=== PATIENT | female | born 1995 | race Caucasian/White ===

== ENCOUNTER 2020-12-07 08:50 | Emergency (ER) | payer OTHER ==
--- NOTE | 2020-12-07 10:05 | ERPHSYRPT ---
- History of Present Illness Time Seen by Provider: 12/07/20 08:56 Source: patient Exam Limitations: no limitations Patient Subjective Stated Complaint: Pt states "I have something and I cannot kick it. It started on Thursday the , I went to [facility] on [facility] and they tested me for douglass and said it was not that so they gave me a Z pack and said I was good. I am still coughing and I feel terrible. My family doc said because I am coughing I have to go to a quick care or something like that." Triage Nursing Assessment: Pt presented alert and oriented X 3, skin wpd Pt ambulates with an upright steady gait, able to speak in clear full sentences pt in no apparent respiratory distress. PT has intermittant coughing. Physician History: 25 years old with history of tobacco abuse presented in the ER with 10-day history of cough congestion. Patient report initially it started with fever chills, productive cough, was evaluated at urgent care and is currently on Z-Franko with improvement in sputum production but still have dry cough. She is having generalized body ache fatigue and tiredness. She was tested outpatient for Covid which was negative. Fever resolved after 2 to 3 days. No known sick contact. Timing/Duration: day(s) (10), gradual onset, worse Cough Quality/Degree: moderate, dry cough, productive cough Modifying Factors: Improves With: coughing Associated Symptoms: fever, chills, chest pain/soreness, cough, muscle aches, sore throat, wheezing, No headache, No nasal congestion, No shortness of breath, No sinus infection Allergies/Adverse Reactions: Penicillins Allergy (Severe, Verified 12/07/20 09:09) Swelling Home Medications: Buspirone HCl 5 mg [Buspar 5 mg] 5 mg PO BID 12/07/20 [History] Hx Tetanus, Diphtheria Vaccination/Date Given: Yes Hx Influenza Vaccination/Date Given: No Hx Pneumococcal Vaccination/Date Given: No Immunizations Up to Date: Yes Travel Risk - International Travel Have you traveled outside of the country in past 3 weeks: No - Coronavirus Screening Are you exhibiting any of the following symptoms?: No Close contact with a COVID-19 positive Pt in past 14-21 Days: No - Vaccine Status Have you recieved a Covid-19 vaccination: No - Review of Systems Constitutional: Fever, Chills Eyes: No Symptoms Ears, Nose, & Throat: Nose Congestion Respiratory: Cough, Wheezing Cardiac: No Symptoms Abdominal/Gastrointestinal: No Symptoms Genitourinary Symptoms: No Symptoms Musculoskeletal: Myalgias Skin: No Symptoms Neurological: No Symptoms Psychological: No Symptoms Endocrine: No Symptoms Hematologic/Lymphatic: No Symptoms Immunological/Allergic: No Symptoms - Past Medical History Pertinent Past Medical History: Yes Neurological History: No Pertinent History Cardiac History: No Pertinent History Endocrine Medical History: No Pertinent History Musculoskeletal History: Fractures - Past Surgical History Past Surgical History: No - Social History Smoking Status: Current every day smoker How long have you smoked: years Exposure to second hand smoke: Yes Drug Use: none Patient Lives Alone: No - Female History Hx Last Menstrual Period: 11/17/2020 Hx Now: (unkn) - Nursing Vital Signs Nursing Vital Signs: Initial Vital Signs Temperature 99.1 F 12/07/20 09:02 Pulse Rate 100 H 12/07/20 09:02 Respiratory Rate 24 12/07/20 09:02 Blood Pressure 131/72 12/07/20 09:02 O2 Sat by Pulse Oximetry 99 12/07/20 09:02 Pain Scale Pain Intensity 4 - Physical Exam General Appearance: no apparent distress, alert Eye Exam: PERRL/EOMI, eyes nml inspection Ears, Nose, Throat Exam: TMs normal, pharyngeal erythema Neck Exam: normal inspection, non-tender, supple, full range of motion Respiratory Exam: normal breath sounds, lungs clear Cardiovascular Exam: regular rate/rhythm, normal heart sounds Gastrointestinal/Abdomen Exam: soft, normal bowel sounds Back Exam: normal inspection, normal range of motion Extremity Exam: normal inspection, normal range of motion Neurologic Exam: alert, oriented x 3, cooperative, normal mood/affect Skin Exam: normal color SpO2 Interpretation: normal SpO2: 99 O2 Delivery: Room Air Ordered Tests: Active Orders 24 hr Category Date Time Status CHEST 1 VIEW (PORTABLE) Stat Exams 12/07/20 09:17 Completed HCG,QUALITATIVE URINE Stat Lab 12/07/20 09:30 Completed INFLUENZA A+B SARKIS Stat Lab 12/07/20 09:30 Completed Lab/Rad Data: Laboratory Results 12/07/20 12/07/20 12/07/20 Range/Units 09:30 09:30 09:30 Urine HCG, Qual NEGATIVE (Negative) Influenza Type A Ag NEGATIVE (NEGATIVE) Influenza Type B Ag NEGATIVE (NEGATIVE) Group A Strep Antibody NOT DETECTED (NEGATIVE) - Progress Progress: unchanged Air Movement: good Progress Note: 12/07/20 10:52 She is not in any distress. Nontoxic appearance. Minimal wheezing bilaterally. X-rays negative for any acute pneumonic infiltrate/consolidation. Negative flu and strep. Repeated Covid which is pending. I believe patient has bronchitis, recommended finishing Z-Franko and will give steroid and albuterol. Do not think she needs any lab work and is stable for discharge with outpatient follow-up. Discussed signs symptoms of worsening needing return to ER which he seems understanding. Blood Culture(s) Obtained: No Antibiotics given: No Counseled pt/family regarding: lab results, diagnosis, need for follow-up, rad results, smoking cessation - Departure Departure Disposition: Home Clinical Impression: Acute bronchitis Qualifiers: Bronchitis organism: unspecified organism Qualified Code(s): J20.9 - Acute bronchitis, unspecified Condition: Stable Critical Care Time: No Referrals: ERNIE FERNANDEZ [ACTIVE STAFF] - Instructions: Cough, Adult (DC) Additional Instructions: Do not smoke. Continue with antibiotics. Follow-up with primary care for reevaluation in the next 2 to 3 days. Return to ER for worsening cough or if develop fever chills/shortness of breath etc. Use inhaler as needed. Prescriptions: Prednisone 20 mg [Deltasone 20 mg] 60 mg PO DAILY 5 Days #15 tablet Albuterol 8 gm Mdi Hfa [Ventolin Hfa MDI] 8 gm IH Q4H #1 [email or web address]
[2020-12-07 10:15] LABS: INFLUENZA A NEGATIVE (NEGATIVE); INFLUENZA B NEGATIVE (NEGATIVE)
--- NOTE | 2020-12-07 10:21 | XRAY ---
Indication: Cough, short of breath, bodyaches. Comparison: None Portable chest demonstrates normal heart, lungs, and bony thorax. Incidental bilateral nipple jewelry.
[2020-12-07 11:04] VITALS: BP 122/60; PULSE 88; O2SAT 98
== END 2020-12-07 11:06 | disposition home or self-care (01) ==
LOC: ED 08:50
DX: J20.9 Acute bronchitis, unspecified (principal)
CPT/HCPCS: 71045; 84703; 87400; 87651; 99284; U0003

== ENCOUNTER 2022-05-09 14:09 | Emergency (ER) | payer OTHER ==
[2022-05-09] MEDS ORDERED: BABY ASPIRIN 81 MG CHEW PO ONE (14:48)
--- NOTE | 2022-05-09 14:52 | ERPHSYRPT ---
- History of Present Illness Time Seen by Provider: 05/09/22 14:10 Historian: patient Exam Limitations: no limitations Patient Subjective Stated Complaint: C/O intermittent right sided chest pain that increased at night and with deep breathing Triage Nursing Assessment: Patient ambulated back to ED without difficulties. No SOB noted. She is alert and oriented. Skin tone normal with skin dry. Physician History: 26-year-old female presented in the ER with chief complaint of right-sided chest pain off and on for almost 1 week with more at nighttime. Patient reports she had really bad allergies this season and was having off-and-on cough. Lately she is having more chest pain on the right side especially at nighttime with coughing. It does hurt to take a deep breath as well. Patient does take control pills. Denies any history of PE. No fever or chills reported. Patient went to urgent care and sent in here for detail evaluation. Her pain is minimal currently. Timing/Duration: week(s) (1), intermittent, gradual onset, worse Activities at Onset: rest, sleep Quality: sharpness Chest Pain Radiation: no radiation Severity of Pain-Max: moderate Severity of Pain-Current: mild Modifying Factors: Worsens With: coughing Associated Symptoms: shortness of breath, No palpitations Prior Chest Pain/Cardiac Workup: no prior cardiac workup Nitro Today/Relief: no nitro taken today Aspirin Treatment Today: no aspirin today Allergies/Adverse Reactions: Penicillins Allergy (Severe, Verified 05/09/22 14:10) Swelling Home Medications: Norgestrel-Ethinyl Estradiol [Elinest-28 Tablet] 1 tab PO DAILY 05/09/22 [History] Hx Tetanus, Diphtheria Vaccination/Date Given: Yes Hx Influenza Vaccination/Date Given: No Hx Pneumococcal Vaccination/Date Given: No Immunizations Up to Date: Yes Travel Risk - International Travel Have you traveled outside of the country in past 3 weeks: No - Coronavirus Screening Are you exhibiting any of the following symptoms?: No Close contact with a COVID-19 positive Pt in past 14-21 Days: No - Vaccine Status Have you recieved a Covid-19 vaccination: Yes Sr. Media Manager: Unknown - Vaccination Dates Dates if Unknown: 2020 - Review of Systems Constitutional: No Symptoms Eyes: No Symptoms Ears, Nose, & Throat: No Symptoms Respiratory: Cough, Dyspnea Cardiac: Chest Pain Abdominal/Gastrointestinal: No Symptoms Genitourinary Symptoms: No Symptoms Musculoskeletal: No Symptoms Skin: No Symptoms Neurological: No Symptoms Endocrine: No Symptoms Hematologic/Lymphatic: No Symptoms Immunological/Allergic: No Symptoms - Past Medical History Pertinent Past Medical History: Yes Neurological History: No Pertinent History ENT History: No Pertinent History Cardiac History: Other Respiratory History: No Pertinent History Endocrine Medical History: No Pertinent History Musculoskeletal History: Fractures GI Medical History: No Pertinent History History: No Pertinent History Other Medical History: heart murmur - Past Surgical History Past Surgical History: No - Social History Smoking Status: Current every day smoker How long have you smoked: 5 years Exposure to second hand smoke: Yes Drug Use: none Patient Lives Alone: No - Female History Hx Last Menstrual Period: 3 weeks ago Hx Now: (UNKN) - Nursing Vital Signs Nursing Vital Signs: Initial Vital Signs Temperature 98.4 F 05/09/22 14:11 Pulse Rate 87 05/09/22 14:11 Respiratory Rate 22 05/09/22 14:11 Blood Pressure 120/70 05/09/22 14:11 O2 Sat by Pulse Oximetry 100 05/09/22 14:11 Pain Scale Pain Intensity 5 - Physical Exam General Appearance: no apparent distress, alert Eye Exam: PERRL/EOMI Ears, Nose, Throat Exam: normal ENT inspection Neck Exam: normal inspection, full range of motion Respiratory Exam: normal breath sounds, wheezing (On left side minimal wheezing) Cardiovascular Exam: regular rate/rhythm, normal heart sounds Gastrointestinal/Abdomen Exam: soft, normal bowel sounds, No tenderness Back Exam: normal inspection Extremity Exam: normal inspection, normal range of motion Neurologic Exam: alert, oriented x 3, cooperative Skin Exam: normal color SpO2 Interpretation: normal SpO2: 100 O2 Delivery: Room Air - Course EKG Interpreted by Me: RATE ([id number]), Sinus Rhythm, NORMAL AXIS, NORMAL INTERVALS, NORMAL QRS Ordered Tests: Active Orders 24 hr Category Date Time Status CHEST 1 VIEW (PORTABLE) Stat Exams 05/09/22 14:48 Completed CBC W DIFF Stat Lab 05/09/22 14:55 Completed CMP Stat Lab 05/09/22 14:55 Completed D-DIMER QUANTITATIVE Stat Lab 05/09/22 14:55 Completed HCG,QUALITATIVE URINE Stat Lab 05/09/22 15:31 Completed NT PRO BNP Stat Lab 05/09/22 14:55 Completed TROPONIN Q4H Lab 05/09/22 14:55 Completed TROPONIN Q4H Lab 05/09/22 19:00 Ordered TROPONIN Q4H Lab 05/09/22 23:00 Ordered Medication Summary Discontinued Medications Generic Name Dose Route Start Last Admin Trade Name Tiff PRN Reason Stop Dose Admin Aspirin 324 mg 05/09/22 14:48 05/09/22 14:54 Aspirin 81 Mg Tab.Chew PO 05/09/22 14:49 324 mg STAT ONE Administration Lab/Rad Data: Laboratory Result Diagrams 05/09/22 14:55 05/09/22 14:55 Laboratory Results 05/09/22 05/09/22 05/09/22 Range/Units 15:31 14:55 14:55 WBC (4.0-10.5) x10^3/uL RBC (4.1-5.4) x10^6/uL Hgb (12.0-16.0) g/dL Hct (35-47) % MCV (78-100) fL MCH (26-32) pg MCHC (32-36) g/dL RDW (11.5-14.0) % Plt Count (150-450) x10^3/uL MPV (7.5-11.0) fL Gran % (36.0-66.0) % Immature Gran % (Auto) (0.00-0.4) % Nucleat RBC Rel Count (0.00-0.1) % Eos # (Auto) (0-0.5) x10^3/uL Immature Gran # (Auto) (0.00-0.03) x10^3u/L Absolute Lymphs (auto) (1.0-4.6) x10^3/uL Absolute Monos (auto) (0.0-1.3) x10^3/uL Absolute Nucleated RBC (0.00-0.01) x10^3u/L Lymphocytes % (24.0-44.0) % Monocytes % (0.0-12.0) % Eosinophils % (0.00-5.0) % Basophils % (0.0-0.4) % Absolute Granulocytes (1.4-6.9) x10^3/uL Basophils # (0-0.4) x10^3/uL D-Dimer 0.27 (0.0-0.50) mg/L Sodium (137-145) mmol/L Potassium (3.5-5.1) mmol/L Chloride (98-107) mmol/L Carbon Dioxide (22-30) mmol/L Anion Gap (5-15) MEQ/L BUN (7-17) mg/dL Creatinine (0.52-1.04) mg/dL Estimated GFR ML/MIN Glucose (74-106) mg/dL Calcium (8.4-10.2) mg/dL Total Bilirubin (0.2-1.3) mg/dL AST (14-36) U/L ALT (0-35) U/L Alkaline Phosphatase (38-126) U/L Troponin I < 0.012 (0.000-0.034) ng/mL NT-Pro-B Natriuret Pep (0-450) pg/mL Serum Total Protein (6.3-8.2) g/dL Albumin (3.5-5.0) g/dL Urine HCG, Qual NEGATIVE (Negative) 05/09/22 05/09/22 Range/Units 14:55 14:55 WBC 5.6 (4.0-10.5) x10^3/uL RBC 4.37 (4.1-5.4) x10^6/uL Hgb 13.1 (12.0-16.0) g/dL Hct 38.8 (35-47) % MCV 88.8 (78-100) fL MCH 30.0 (26-32) pg MCHC 33.8 (32-36) g/dL RDW 11.9 (11.5-14.0) % Plt Count 308 (150-450) x10^3/uL MPV 9.2 (7.5-11.0) fL Gran % 58.8 (36.0-66.0) % Immature Gran % (Auto) 0.2 (0.00-0.4) % Nucleat RBC Rel Count 0.0 (0.00-0.1) % Eos # (Auto) 0.26 (0-0.5) x10^3/uL Immature Gran # (Auto) 0.01 (0.00-0.03) x10^3u/L Absolute Lymphs (auto) 1.54 (1.0-4.6) x10^3/uL Absolute Monos (auto) 0.47 (0.0-1.3) x10^3/uL Absolute Nucleated RBC 0.00 (0.00-0.01) x10^3u/L Lymphocytes % 27.5 (24.0-44.0) % Monocytes % 8.4 (0.0-12.0) % Eosinophils % 4.6 (0.00-5.0) % Basophils % 0.5 (0.0-0.4) % Absolute Granulocytes 3.29 (1.4-6.9) x10^3/uL Basophils # 0.03 (0-0.4) x10^3/uL D-Dimer (0.0-0.50) mg/L Sodium 137 (137-145) mmol/L Potassium 4.2 (3.5-5.1) mmol/L Chloride 105 (98-107) mmol/L Carbon Dioxide 26 (22-30) mmol/L Anion Gap 10.6 (5-15) MEQ/L BUN 11 (7-17) mg/dL Creatinine 0.76 (0.52-1.04) mg/dL Estimated GFR > 60.0 ML/MIN Glucose 110 H (74-106) mg/dL Calcium 9.3 (8.4-10.2) mg/dL Total Bilirubin 0.40 (0.2-1.3) mg/dL AST 21 (14-36) U/L ALT 17 (0-35) U/L Alkaline Phosphatase 32 L (38-126) U/L Troponin I (0.000-0.034) ng/mL NT-Pro-B Natriuret Pep 35.3 (0-450) pg/mL Serum Total Protein 7.4 (6.3-8.2) g/dL Albumin 4.5 (3.5-5.0) g/dL Urine HCG, Qual (Negative) - Progress Progress: improved Air Movement: good Progress Note: 05/09/22 15:50 26-year-old is evaluated for right-sided chest pain intermittently especially at nighttime with coughing. She is given aspirin. Does not want any other pain medications. She is feeling better already and it happens only at nighttime. EKG showed normal sinus rhythm with no acute ischemic changes. Negative troponin and D-dimers. Chest x-ray negative for any acute cardiopulmonary findings. Low heart score, do not seem like cardiac in nature at all but more of a infectious possibly viral and does have some wheezing. I will give her albuterol and short course of steroid. Recommended Tylenol ibuprofen as needed. Discussed signs symptoms of worsening needing return to ER which she seems understanding. Blood Culture(s) Obtained: No Antibiotics given: No Counseled pt/family regarding: lab results, diagnosis, need for follow-up, rad results, smoking cessation - Departure Clinical Impression: Atypical chest pain, Wheezing Condition: Stable Critical Care Time: No Referrals: DOCTOR,NO FAMILY [Primary Care Provider] - Follow up/PCP as directed JONATHAN MORA MD [ACTIVE STAFF] - Follow Up with PCP/3 days Instructions: Angina (DC) Additional Instructions: Do not smoke. Use inhaler as needed. Follow-up with primary care for reevaluation. Return to ER for any worsening. Take Tylenol/ibuprofen as needed for pain. Prescriptions: Prednisone 20 mg [Deltasone 20 mg] 60 mg PO DAILY 5 Days #15 tablet
[2022-05-09 15:01] LABS: Absolute Neutrophil Ct (ANC) 3.29 x10^3/uL (1.4-6.9); Basophil (Absolute #) 0.03 x10^3/uL (0-0.4); Eosinophil % 4.6 % (0.00-5.0); Eosinophil (Absolute #) 0.26 x10^3/uL (0-0.5); Hematocrit 38.8 % (35-47); Hemoglobin 13.1 g/dL (12.0-16.0); Lymphocyte (Absolute #) 1.54 x10^3/uL (1.0-4.6); Lymphocytes % 27.5 % (24.0-44.0); Mean Cell Volume 88.8 fL (78-100); Mean Corpuscular Hgb Concent. 33.8 g/dL (32-36); Mean Platelet Volume 9.2 fL (7.5-11.0); Monocyte (Absolute #) 0.47 x10^3/uL (0.0-1.3); Monocytes % 8.4 % (0.0-12.0); Neutrophil % 58.8 % (36.0-66.0); Platelet Count 308 x10^3/uL (150-450); Red Blood Count 4.37 x10^6/uL (4.1-5.4); Red Cell Distribution Width 11.9 % (11.5-14.0); White Blood Count 5.6 x10^3/uL (4.0-10.5)
--- NOTE | 2022-05-09 15:09 | XRAY ---
Indication: Chest pain. Comparison: December 07, 2020 Portable chest again demonstrates normal heart, lungs, and bony thorax with incidental bilateral nipple jewelry.
[2022-05-09 15:14] VITALS: BP 125/75; PULSE 76
[2022-05-09 15:23] LABS: ALBUMIN 4.5 g/dL (3.5-5.0); ALKALINE PHOSPHATASE 32 U/L (38-126); ANION GAP 10.6 MEQ/L (5-15); BLOOD UREA NITROGEN 11 mg/dL (7-17); CHLORIDE 105 mmol/L (98-107); Calcium 9.3 mg/dL (8.4-10.2); Carbon Dioxide 26 mmol/L (22-30); Creatinine 1 0.76 mg/dL (0.52-1.04); EST GLOMERULAR FILTRATION RATE > 60.0 ML/MIN; Glucose 110 mg/dL (74-106); NT PRO BNP 35.3 pg/mL (0-450); Potassium 4.2 mmol/L (3.5-5.1); SGOT/AST 21 U/L (14-36); SGPT/ALT 17 U/L (0-35); SODIUM 137 mmol/L (137-145); Total Protein 7.4 g/dL (6.3-8.2)
[2022-05-09 15:52] VITALS: O2SAT 100
== END 2022-05-09 16:08 | disposition home or self-care (01) ==
LOC: ED 14:09
DX: R07.89 Other chest pain (principal); R06.2 Wheezing; R05.9 Cough, unspecified; R06.00 Dyspnea, unspecified; Z72.0 Tobacco use; Z79.52 Long term (current) use of systemic steroids
CPT/HCPCS: 36415; 71045; 80053; 81025; 83880; 84484; 85025; 85379; 99283; A9270-GY

== ENCOUNTER 2022-06-15 16:48 | Emergency (ER) | payer OTHER ==
[2022-06-15] MEDS ORDERED: HYDROCODONE-ACETAMIN 2.5-108/5 ML SOLUTION PO STA (18:14)
[2022-06-15] MEDS ORDERED: TYLENOL 325 MG PO ONE (18:14)
[2022-06-15] MEDS ORDERED: solu-MEDROL 125 MG, Sterile H2O 10 ml 2 ML IM ONE ×2 (18:16)
[2022-06-15] MEDS ORDERED: HYDROCODONE-ACETAMIN 2.5-108/5 ML SOLUTION ONE (18:19)
[2022-06-15] MEDS ORDERED: Sterile H2O 10 ml IJ ONE (18:19)
[2022-06-15] MEDS ORDERED: DUONEB 0.5-3 MG/3 ml Neb IH ONE ×2 (18:20→18:21)
[2022-06-15] MEDS ORDERED: solu-MEDROL ONE (18:20)
[2022-06-15] MEDS ORDERED: TYLENOL 325 MG ONE (18:20)
[2022-06-15 18:30] VITALS: BP 112/62
--- NOTE | 2022-06-15 18:38 | ERPHSYRPT ---
- History of Present Illness Time Seen by Provider: 06/15/22 18:15 Source: patient Exam Limitations: no limitations Patient Subjective Stated Complaint: pt here for a cough and fever for a couple days, not eating or drinking well. had recent hand surgery Triage Nursing Assessment: pt alert, resp easy, skin w/d/p. face ,mask in place, has dry cough, no edema noted, nasal congestion Physician History: This is a 26-year-old white female who was smoking cigarettes daily up until 2 days ago. She stopped smoking because 5 days ago she was having coughing episodes as well as nasal congestion, headache, body aches. 2 days ago she noticed she was having a fever that was low-grade. Patient has not had any nausea vomiting or diarrhea and does not have abdominal pain. However she has not been eating and drinking her normal intake. Her had similar symptoms but his symptoms were relieved within a couple days. Patient has a history of double pneumonia in the past. Her cough is dry and nonproductive. Timing/Duration: day(s) (5), worse Cough Quality/Degree: mild, dry cough Possible Cause: no prior episodes Modifying Factors: Improves With: coughing Associated Symptoms: fever, cough, muscle aches, wheezing Allergies/Adverse Reactions: Penicillins Allergy (Severe, Verified 06/15/22 17:56) Swelling Home Medications: Norgestrel-Ethinyl Estradiol [Elinest-28 Tablet] 1 tab PO DAILY 05/09/22 [History] Hx Tetanus, Diphtheria Vaccination/Date Given: No Hx Influenza Vaccination/Date Given: No Hx Pneumococcal Vaccination/Date Given: Yes Travel Risk - International Travel Have you traveled outside of the country in past 3 weeks: No - Coronavirus Screening Are you exhibiting any of the following symptoms?: Yes Symptoms: Fever, Cough: New Onset, Headaches/Body Aches/Fatigue - Vaccine Status Have you recieved a Covid-19 vaccination: Yes Medical Scheduler: Unknown - Vaccination Dates Date of 2cond Vaccination (if applicable): 2020 Dates if Unknown: 2020 - Review of Systems Constitutional: Fever Eyes: No Symptoms Ears, Nose, & Throat: Throat Pain Respiratory: Cough, Wheezing Cardiac: No Symptoms Abdominal/Gastrointestinal: Appetite Changes, No Abdominal Pain, No Nausea, No Vomiting, No Diarrhea Genitourinary Symptoms: No Symptoms Musculoskeletal: Arthralgias, Myalgias Skin: No Symptoms Neurological: No Symptoms Psychological: No Symptoms Endocrine: No Symptoms Hematologic/Lymphatic: No Symptoms Immunological/Allergic: No Symptoms All Other Systems: Reviewed and Negative - Past Medical History Pertinent Past Medical History: Yes Neurological History: No Pertinent History ENT History: No Pertinent History Cardiac History: Other Respiratory History: No Pertinent History Endocrine Medical History: No Pertinent History Musculoskeletal History: Fractures GI Medical History: No Pertinent History History: No Pertinent History Other Medical History: heart murmur - Past Surgical History Past Surgical History: Yes Musculoskeletal: Orthopedic Surgery Other Surgical History: left hand - Social History Smoking Status: Never smoker How long have you smoked: 5 years Exposure to second hand smoke: No Drug Use: none Patient Lives Alone: No - Female History Hx Last Menstrual Period: last week Hx Now: No - Nursing Vital Signs Nursing Vital Signs: Initial Vital Signs Temperature 99.5 F 06/15/22 17:48 Pulse Rate 124 H 06/15/22 17:48 Respiratory Rate 20 06/15/22 17:48 Blood Pressure 104/64 06/15/22 17:48 O2 Sat by Pulse Oximetry 98 06/15/22 17:48 Pain Scale Pain Intensity 8 - Physical Exam General Appearance: no apparent distress, alert, anxiety Eye Exam: PERRL/EOMI, eyes nml inspection Ears, Nose, Throat Exam: normal ENT inspection, moist mucous membranes Neck Exam: normal inspection, non-tender, supple, full range of motion Respiratory Exam: wheezing (Bilateral diffuse), No chest tenderness, No respiratory distress Cardiovascular Exam: tachycardia Gastrointestinal/Abdomen Exam: soft, normal bowel sounds, No tenderness Pelvic Exam: not done Rectal Exam: not done Back Exam: normal inspection, normal range of motion, No CVA tenderness, No vertebral tenderness Extremity Exam: normal inspection, normal range of motion, pelvis stable Neurologic Exam: alert, oriented x 3, cooperative, line staker II-XII nml as tested, normal mood/affect, nml cerebellar function, nml station & gait, sensation nml Skin Exam: normal color, warm, dry Lymphatic Exam: No adenopathy SpO2 Interpretation: normal SpO2: 100 O2 Delivery: Room Air - Course Nursing assessment & vital signs reviewed: Yes Ordered Tests: Active Orders 24 hr Category Date Time Status CHEST 1 VIEW (PORTABLE) Stat Exams 06/15/22 18:36 Taken Respiratory Therapy Assessment DAILY RT 06/15/22 18:42 Active Medication Summary Discontinued Medications Generic Name Dose Route Start Last Admin Trade Name Tiff PRN Reason Stop Dose Admin Acetaminophen 650 mg 06/15/22 18:14 06/15/22 18:21 Acetaminophen 325 Mg Tablet PO 06/15/22 18:15 650 mg STAT ONE Administration Acetaminophen Confirm 06/15/22 18:20 Acetaminophen 325 Mg Tablet Administered 06/15/22 18:21 Dose 650 mg .ROUTE .STK-MED ONE Hydrocodone Bitart/Acetaminophen 10 ml 06/15/22 18:14 06/15/22 18:21 Hydrocodone/Acetaminophen 5 Ml Udcup PO 06/15/22 18:15 10 ml STAT STA Administration Hydrocodone Bitart/Acetaminophen Confirm 06/15/22 18:19 Hydrocodone/Acetaminophen 5 Ml Udcup Administered 06/15/22 18:20 Dose 10 ml .ROUTE .STK-MED ONE Albuterol/Ipratropium Confirm 06/15/22 18:21 Ipratropium/Albuterol Sulfate 3 Ml Ampul.Neb Administered 06/15/22 18:22 Dose 3 ml IH .STK-MED ONE Albuterol/Ipratropium 3 ml 06/15/22 18:20 06/15/22 18:25 Ipratropium/Albuterol Sulfate 3 Ml Ampul.Neb IH 06/15/22 18:21 3 ml STAT ONE Administration Methylprednisolone Sodium 0 mg 06/15/22 18:16 06/15/22 18:21 Succinate 125 mg/ Sterile IM 06/15/22 18:17 125 mg Water 2 ml STAT ONE Administration Methylprednisolone Sodium Succinate Confirm 06/15/22 18:20 Methylprednis Sod Succ 125 Mg/2 Ml Vial Administered 06/15/22 18:21 Dose 125 mg .ROUTE .STK-MED ONE Sterile Water Confirm 06/15/22 18:19 Water For Injection,Sterile 10 Ml Vial Administered 06/15/22 18:20 Dose 10 ml IJ .STK-MED ONE Lab/Rad Data: Laboratory Results 06/15/22 Range/Units 18:24 Influenza Type A Ag POSITIVE (NEGATIVE) Influenza Type B Ag NEGATIVE (NEGATIVE) RSV (PCR) NEGATIVE (Negative) SARS-CoV-2 (PCR) NEGATIVE (NEGATIVE) Group A Strep Antibody NOT DETECTED (NEGATIVE) - Progress Progress: improved, re-examined Air Movement: fair Progress Note: 06/15/22 19:39 Chest x-ray shows no acute cardiopulmonary process Blood Culture(s) Obtained: Yes Antibiotics given: No Counseled pt/family regarding: lab results, diagnosis, need for follow-up, rad results - Departure Departure Disposition: Home Clinical Impression: Influenza A H1N1 infection Condition: Stable Critical Care Time: No Referrals: DOCTOR,NO FAMILY [Primary Care Provider] - Follow up/PCP as directed Additional Instructions: Drink plenty of clear liquids. Add ibuprofen 600 mg orally 3 times a day with food for fever control. Take your medication as prescribed. Prescriptions: Hydrocodone/Acetaminophen [Hydrocodone-Acetamn 7.5-325/15] 10 ml PO Q8H PRN PRN #120 ml MDD 30 ml PRN Reason: Cough Prednisone 10 mg [Deltasone 10 mg] 10 mg PO TID #12 tablet
[2022-06-15 18:56] LABS: Group A Strep NOT DETECTED (NEGATIVE)
[2022-06-15 19:08] LABS: INFLUENZA B NEGATIVE (NEGATIVE); RESPIRATORY SYNCTIAL VIRUS NEGATIVE (Negative); SARS-CoV-2 Xpert Express NEGATIVE (NEGATIVE)
[2022-06-15 19:33] LABS: INFLUENZA A POSITIVE (NEGATIVE)
[2022-06-15 20:00] VITALS: PULSE 123; O2SAT 99
--- NOTE | 2022-06-16 08:37 | XRAY ---
Indication: Fever and cough. Comparison: May 09, 2022 Portable chest again demonstrates normal heart, lungs, and bony thorax.
== END 2022-06-15 20:00 | disposition home or self-care (01) ==
LOC: ED 16:48
DX: J10.1 Influenza due to other identified influenza virus with other respiratory manifestations (principal); R05.1 Acute cough; R09.81 Nasal congestion; R51.9 Headache, unspecified; M79.10 Myalgia, unspecified site; R50.9 Fever, unspecified; Z79.891 Long term (current) use of opiate analgesic; Z79.52 Long term (current) use of systemic steroids
CPT/HCPCS: 0241U; 71045; 87651; 94640; 96372; 99283; J2930; A9270-GY

== ENCOUNTER 2024-03-15 06:26 | Day surgery (SDC) | payer OTHER ==
[2024-03-15 06:44] LABS: HCG URINE TEST NEGATIVE (NEGATIVE)
[2024-03-15] MEDS: Lactated Ringers 1,000 ML IV SCH (06:48)
[2024-03-15] MEDS ORDERED: DIPRIVAN 200 MG/20 ML IV ONE ×3 (08:09→08:26)
[2024-03-15 09:15] VITALS: RESP 16
[2024-03-15 09:22] VITALS: BP 105/81; PULSE 77; TEMP 98.5; O2SAT 98
--- NOTE | 2024-03-16 10:45 | OP ---
SURGERY DATE/TIME: 03/16/2024 6240 - 3095 PREOPERATIVE DIAGNOSIS: Irritable bowel syndrome with diarrhea and rectal bleeding. POSTOPERATIVE DIAGNOSIS: Normal-appearing colon. PROCEDURE: Colonoscopy with cold forceps biopsies randomly through the colon. SURGEON: Dilan Chopra MD. ANESTHESIA: Medications given by the Anesthesia department. INDICATIONS: The patient is a 28-year-old white female who reports that she has lost approximately 50 pounds in the past year. She reports she is having diarrhea stools up to 12 times a day and which she has also been passing some bleed. The patient was felt to need to have an endoscopic evaluation. She was apprised of the risks of the procedure, her risk of perforation, phlebitis, untoward reaction to medication, bleeding, and missed lesions. The patient verbalized her understanding and desired to have the procedure performed. DESCRIPTION OF PROCEDURE AND FINDINGS: The patient was given medication by the Anesthesia department. She had continuous pulse oximetry, ECG monitoring, and intermittent blood pressure monitoring during the examination. She was placed in left lateral decubitus position. Digital rectal examination was performed and revealed normal anal sphincter tone and no masses. The flexible Olympus videocolonoscope was used to intubate the rectum. A view of the colon was developed sequentially to the cecum including a short distance of terminal ileum. Upon insertion and withdrawal including retroflexion in the rectum, no mucosal lesions were noted. Biopsies were obtained approximately every 10 cm through the colon upon withdrawal of the scope to rule out any underlying collagenous or inflammatory bowel disease.
== END 2024-03-15 09:30 | disposition home or self-care (01) ==
LOC: SDC 06:26
PROVIDERS: ATTEND Family Medicine
DX: K58.0 Irritable bowel syndrome with diarrhea (principal); K62.5 Hemorrhage of anus and rectum
CPT/HCPCS: 81025; J2704